=== PATIENT | female | born 1950 | race Caucasian/White ===

== ENCOUNTER → 2021-10-29 | Outpatient (CLI) | payer MEDICARE, OTHER ==
[~2021-10-29] MED LIST: ASPIRIN EC81 MG PO; CALTRATE 600 +1 EAC1 PO; GLIMEPIRIDE4 MG PO; NAMZARIC 28 MG1 EACH PO; NOVOLOG100 UNIT/1 SQ; SIMVASTATIN40 MG PO; SINGULAIR10 MG PO; SYNTHROID 50 M50 MCG PO; TOUJEO MAX300 UNIT/1 SQ; TRULICITY1.5 MG/0.5 SQ; TYLENOL 500 MG500 MG PO; WELLBUTRIN 100100 MG PO; ZANTAC150 MG PO; ZOLOFT50 MG PO
== END ==
LOC: KOH-I 09:32
DX: S82.891A Other fracture of right lower leg, initial encounter for closed fracture (principal); S92.901A Unspecified fracture of right foot, initial encounter for closed fracture; M19.071 Primary osteoarthritis, right ankle and foot
CPT/HCPCS: 73610; 73630